=== PATIENT | female | born 1960 | race Caucasian/White ===

== ENCOUNTER 2017-03-08 15:57 | Emergency (ER) | payer OTHER, MEDICARE, MEDICAID ==
[2017-03-08] MEDS ORDERED: PRINIVIL10 M1 PO (16:19)
[2017-03-08] MEDS ORDERED: ULTRAM50 M1 PO (16:19)
[2017-03-08] MEDS ORDERED: SYNTHROID175 MC1 PO (16:19)
[2017-03-08] MEDS ORDERED: ABILIFY5 M1 PO (16:19)
[2017-03-08] MEDS ORDERED: PROPRANOLOL HCL20 M2 PO (16:19)
[2017-03-08] MEDS ORDERED: REQUIP2 M1 PO (16:20)
[2017-03-08] MEDS ORDERED: LANTUS100 UNITS/ SC (16:21)
[2017-03-08] MEDS ORDERED: LIPITOR80 M1 PO (16:21)
[2017-03-08] MEDS ORDERED: ZOLOFT100 M1 PO (16:21)
[2017-03-08] MEDS ORDERED: VITAMIN D250000 UNI1 PO (16:22)
[2017-03-08] MEDS ORDERED: METFORMIN HCL500 M3 PO (16:22)
[2017-03-08] MEDS ORDERED: LYRICA50 MG/CAP PO (16:22)
[2017-03-08] MEDS ORDERED: VENTOLIN HFA18 G2 INH (16:23)
[2017-03-08] MEDS ORDERED: ARIMIDEX1 M1 PO (16:23)
[2017-03-08] MEDS ORDERED: AMBIEN10 M1 PO (16:23)
[2017-03-08] MEDS ORDERED: LOPERAMIDE2 M2 PO (16:24)
[2017-03-08] MEDS ORDERED: CYCLOBENZAPRINE10 M1 PO (16:24)
[2017-03-08] MEDS ORDERED: ALBUTEROL2.5 MG/3 M INH (16:25)
[2017-03-08] MEDS ORDERED: FIORICET 50-301 EAC1 PO (16:25)
[2017-03-08] MEDS ORDERED: DICYCLOMINE HCL20 M1 PO (16:25)
[2017-03-08] MEDS ORDERED: HUMALOG100 UNITS/ SC ×2 (16:40→16:41)
[2017-03-08] MEDS ORDERED: ZYRTEC10 M7 PO (16:41)
[2017-03-08] MEDS ORDERED: NORCO 5-325 TA1 EACH PO (17:39)
== END 2017-03-08 17:50 ==
LOC: EDMED 15:57
DX: S00.93XA Contusion of unspecified part of head, initial encounter (principal); S10.93XA Contusion of unspecified part of neck, initial encounter; S40.012A Contusion of left shoulder, initial encounter; S80.02XA Contusion of left knee, initial encounter; S90.02XA Contusion of left ankle, initial encounter; I10 Essential (primary) hypertension; J45.909 Unspecified asthma, uncomplicated; Z86.718 Personal history of other venous thrombosis and embolism; E66.9 Obesity, unspecified; Z79.01 Long term (current) use of anticoagulants; Z79.899 Other long term (current) drug therapy; F17.200 Nicotine dependence, unspecified, uncomplicated; V89.1XXA Person injured in unspecified nonmotor-vehicle accident, nontraffic, initial encounter; Y93.I9 Activity, other involving external motion; Y92.410 Unspecified street and highway as the place of occurrence of the external cause; Y99.8 Other external cause status